=== PATIENT | female | born 1975 | race Caucasian/White ===

== ENCOUNTER 2020-12-04 14:21 | Inpatient (IN) ==
[2020-12-04 15:44] LABS: ABS Basophils 0.1 10^3/ul (0-0.2); ABS Eosinophils 0.1 10^3/ul (0-0.6); ABS Monocytes 0.6 10^3/ul (0-0.8); ABS Neutrophils 6.6 10^3/ul (1.5-7.7); Eosinophil % 0.8 %; Hematocrit 43 % (35-47); Hemoglobin 14.7 g/dL (12.0-16.0); Lymphocyte % 12.4 %; Mean Corpuscular HGB Conc 34 g/dL (31-36); Mean Corpuscular Hemoglobin 31 pg (27-31); Mean Corpuscular Volume 91 fL (80-97); Mean Platelet Volume 7.8 fL (7.4-10.4); Platelet Count 305 10^3/uL (150-450); Red Blood Count 4.71 10^6 /uL (3.70-4.87); Red Cell Distribution Width 14 % (10-15); White Blood Count 8.3 10^3/uL (3.5-10.8)
[2020-12-04 15:47] LABS: Urine Appearance Cloudy; Urine Bilirubin Negative (Negative); Urine Blood 2+ (Negative); Urine Color Yellow; Urine Glucose Negative (Negative); Urine Ketones Negative (Negative); Urine Nitrite Negative (Negative); Urine Protein 1+(30 mg/dL) (Negative); Urine Specific Gravity 1.028 (1.002-1.030); Urine Urobilinogen Negative (Negative)
[2020-12-04 15:57] LABS: Urine Benzodiazepine Screen Presumptive Positive (None Detect); Urine Cannabinoids Screen None Detected (None Detect); Urine Opiates Screen None Detected (None Detect)
[2020-12-04 15:58] LABS: ALT 39 U/L (7-52); AST 32 U/L (13-39); Albumin 4.5 g/dL (3.2-5.2); Albumin/Globulin Ratio 1.8 (1-3); Alkaline Phosphatase 100 U/L (34-104); Anion Gap 7 mmol/L (2-11); BUN/Creatinine Ratio 14.5 (8-20); Blood Urea Nitrogen 18 mg/dL (6-24); CO2 Carbon Dioxide 24 mmol/L (22-32); Calcium 10.2 mg/dL (8.6-10.3); Chloride 108 mmol/L (101-111); EGFR African American 56.1 (>60); EGFR Non-African American 46.4 (>60); Globulin 2.5 g/dL (2-4); Glucose 105 mg/dL (70-100); Potassium 3.7 mmol/L (3.5-5.0); Sodium 139 mmol/L (135-145)
[2020-12-04 15:59] LABS: Urine Bacteria Absent (Absent); Urine Red Blood Cell 3+(>10/hpf) (Absent); Urine Squamous Epithelial Cell Present (Absent); Urine White Blood Cell Trace(0-5/hpf) (Absent)
[2020-12-04 16:08] LABS: Acetaminophen < 15 mcg/mL; Alcohol, S < 10 mg/dL (<10); Salicylate < 2.50 mg/dL (<30)
[2020-12-04 22:36] LABS: Vitamin B12 261 pg/mL (180-914)
[2020-12-05] MEDS ORDERED: Al Hydrox/Mg Hydrox/Simet LIQ 30 ML UDC PO PRN (00:28)
[2020-12-05] MEDS ORDERED: Cyanocobalamin INJ 1,000 MCG/ML VIAL 1 ML VIAL IM SCH ×2 (09:00→13:00)
[2020-12-05] MEDS ORDERED: MESALAMINE 0.375 GM PO SCH (09:00)
[2020-12-05] MEDS: CMCS: Lactase Enzyme (NF) 3,000 UNIT TAB PO SCH ×3 (10:21→18:03)
[2020-12-05] MEDS: Vitamin THERAPEUTIC TAB PO SCH (10:21)
[2020-12-05] MEDS: LYSINE 500 MG PO SCH (10:22)
[2020-12-05] MEDS: CMCS: LINACLOTIDE 72 MCG CAP (NF) PO SCH (10:22)
[2020-12-05] MEDS ORDERED: Nicotine GUM 2MG FRUIT FLAVOR PO PRN (12:49)
[2020-12-05 12:55] LABS: HCG Pregnancy 1.46 mIU/mL
[2020-12-05] MEDS: Nicotine PATCH 14 MG/24 HR PATCH TRANSDERM SCH (13:22)
[2020-12-06] MEDS: Nicotine PATCH 14 MG/24 HR PATCH TRANSDERM SCH (10:27)
[2020-12-06] MEDS: CMCS: LINACLOTIDE 72 MCG CAP (NF) PO SCH (10:27)
[2020-12-06] MEDS: CMCS: Lactase Enzyme (NF) 3,000 UNIT TAB PO SCH ×3 (10:27→18:04)
[2020-12-06] MEDS: Vitamin THERAPEUTIC TAB PO SCH (10:28)
[2020-12-06] MEDS: LYSINE 500 MG PO SCH (10:28)
[2020-12-07] MEDS: Nicotine PATCH 14 MG/24 HR PATCH TRANSDERM SCH (09:50)
[2020-12-07] MEDS: CMCS: Lactase Enzyme (NF) 3,000 UNIT TAB PO SCH ×3 (09:50→17:37)
[2020-12-07] MEDS: LYSINE 500 MG PO SCH (09:50)
[2020-12-07] MEDS: Vitamin THERAPEUTIC TAB PO SCH (09:50)
[2020-12-07] MEDS: CMCS: LINACLOTIDE 72 MCG CAP (NF) PO SCH (09:50)
[2020-12-08] MEDS: CMCS: Lactase Enzyme (NF) 3,000 UNIT TAB PO SCH ×3 (08:21→17:07)
[2020-12-08] MEDS: Vitamin THERAPEUTIC TAB PO SCH (08:22)
[2020-12-08] MEDS: CMCS: LINACLOTIDE 72 MCG CAP (NF) PO SCH (08:22)
[2020-12-08] MEDS: Nicotine PATCH 14 MG/24 HR PATCH TRANSDERM SCH (08:22)
[2020-12-08] MEDS: LYSINE 500 MG PO SCH (08:22)
[2020-12-09] MEDS: CMCS: Lactase Enzyme (NF) 3,000 UNIT TAB PO SCH ×3 (08:59→17:43)
[2020-12-09] MEDS: Nicotine PATCH 14 MG/24 HR PATCH TRANSDERM SCH (09:00)
[2020-12-09] MEDS: CMCS: LINACLOTIDE 72 MCG CAP (NF) PO SCH (09:00)
[2020-12-09] MEDS: Vitamin THERAPEUTIC TAB PO SCH (09:01)
[2020-12-09] MEDS: LYSINE 500 MG PO SCH (09:01)
[2020-12-10] MEDS: CMCS: Lactase Enzyme (NF) 3,000 UNIT TAB PO SCH (09:08)
[2020-12-10] MEDS: Nicotine PATCH 14 MG/24 HR PATCH TRANSDERM SCH (09:09)
[2020-12-10] MEDS: LYSINE 500 MG PO SCH (09:09)
[2020-12-10] MEDS: Vitamin THERAPEUTIC TAB PO SCH (09:09)
[2020-12-10] MEDS: CMCS: LINACLOTIDE 72 MCG CAP (NF) PO SCH (09:09)
[2020-12-10 09:45] VITALS: BP 108/70
== END 2020-12-10 10:20 | disposition home or self-care (01) | DRG 776 ==
LOC: ED 14:21 → BSU 21:15
PROVIDERS: ADMIT Psychiatry & Neurology Psychiatry; ATTEND Psychiatry & Neurology Psychiatry